=== PATIENT | male | born 1945 | race Asian ===

== ENCOUNTER 2024-02-13 08:43 | Inpatient (IN) | payer OTHER ==
[2024-02-13 10:08] LABS: HEMATOCRIT 39.5 % (35.4-49); HEMOGLOBIN 13.8 GM/dL (11.7-16.9); INR 1.09 (0.83-1.09); MCH 31.4 pg (25.7-33.7); MCHC 34.9 g/dl (32.0-35.9); MEAN CELL VOLUME 90.2 fl (80-96); MEAN PLT VOLUME 8.5 fl (7.5-11.1); PLATELET COUNT 203 10^3/uL (134-434); PROTHROMBIN TIME (PATIENT) 12.3 SEC (9.7-13.0); RBC 4.38 M/mm3 (4.00-5.60); RDW 13.7 % (11.9-15.9); WHITE BLOOD COUNT 12.2 K/mm3 (4.0-10.0)
[2024-02-13 10:11] LABS: ACTIVATED PTT 29.2 SECONDS (25.2-36.5)
[2024-02-13] MEDS ORDERED: ACETAMINOPHEN INJECTION 100 ML IVPB ONE (10:19)
[2024-02-13] MEDS ORDERED: FAMOTIDINE 20 MG/50 ML IVPB 20 MG/50 ML MG IVPB ONE (10:19)
[2024-02-13] MEDS: morphine CARPU-JECT 2 MG/1 ML DISP.SYRIN IVPUSH ONE (10:30)
[2024-02-13] MEDS: ACETAMINOPHEN 1000 MG/100 ML BAG IVPB ONE (10:35)
[2024-02-13] MEDS: FAMOTIDINE 20 MG/50 ML IVPB 20 MG/50 ML MG IVPB ONE (10:35)
[2024-02-13] MEDS: SODIUM CHLORIDE 0.9% 500 ML INFUS.BAG IV ONE ×3 (10:55→14:43)
[2024-02-13 10:58] LABS: ANISOCYTOSIS 0; MACROCYTOSIS 0
[2024-02-13 11:08] LABS: ALBUMIN 3.8 g/dl (3.4-5.0); BILIRUBIN,TOTAL 3.1 mg/dL (0.2-1); BLOOD UREA NITROGEN 20.8 mg/dL (7-18); CALCIUM 8.8 mg/dL (8.5-10.1); CREATININE 1.5 mg/dL (0.55-1.3); POTASSIUM 4.8 mmol/L (3.5-5.1); TOT PROT 7.3 g/dl (6.4-8.2)
[2024-02-13 11:33] LABS: BILIRUBIN,DIRECT 1.4 mg/dL (0.0-0.2)
[2024-02-13 14:15] LABS: EPI CELLS 3 /uL (0-25.1); HYALINE CASTS 0 /uL (0-3.1); URINE APPEARANCE CLEAR; URINE BACTERIA 10 /uL (0-1359); URINE BILIRUBIN NEGATIVE (NEGATIVE); URINE COLOR YELLOW; URINE GLUCOSE (UA) 1+ (NEGATIVE); URINE KETONE NEGATIVE (NEGATIVE); URINE LEUK ESTERASE NEGATIVE (NEGATIVE); URINE NITRITE NEGATIVE (NEGATIVE); URINE PROTEIN 1+ (NEGATIVE); URINE RBC 57 /uL (0-23.9); URINE WBC 13 /uL (0-25.8)
[2024-02-13] MEDS ORDERED: PIPERACILLIN/TAZOB 4.5 GM 4.5 GM/100 ML BAG IVPB ONE (14:36)
[2024-02-13] MEDS: PIPERACILLIN/TAZOB 4.5 GM 4.5 GM in DEXTROSE 5%-WATER 100 ML IVPB ONE (14:43)
[2024-02-13 16:05] VITALS: BMI 28.0
[2024-02-13] MEDS: LACTATED RINGERS SOLUTION 1,000 ML/1,000 ML INFUS.BAG IV SCH (16:21)
[2024-02-13] MEDS ORDERED: ALBUTEROL SO4 HFA INHALER IH PRN (16:54)
[2024-02-13] MEDS: PIPERACILLIN/TAZOB 3.375 GM 3.375 GM in DEXTROSE 5%-WATER - 50 ML IVPB SCH (17:07)
[2024-02-13] MEDS ORDERED: PIPERACILLIN/TAZOB 3.375 GM 3.375 GM in DEXTROSE 5%-WATER - 50 ML IVPB SCH (18:00)
[2024-02-13] MEDS: ATORVASTATIN CA 20 MG TABLET (FP) PO SCH (21:20)
[2024-02-13] MEDS: GABAPENTIN 100 MG CAPSULE PO SCH (21:20)
[2024-02-13] MEDS: MONTELUKAST NA 10 MG TABLET PO SCH (21:20)
[2024-02-13] MEDS: PIPERACILLIN/TAZOB 2.25 GM 2.25 GM in DEXTROSE 5%-WATER - 50 ML IVPB SCH (21:21)
[2024-02-14 08:47] LABS: COCAINE, UR NEGATIVE (NEGATIVE); METHADONE, UR NEGATIVE (NEGATIVE); OPIATES, URI POSITIVE (NEGATIVE); PHENCYCLIDINE,URINE NEGATIVE (NEGATIVE); URINE AMPHETAMINES NEGATIVE (NEGATIVE); URINE BARBITURATES NEGATIVE (NEGATIVE); URINE BENZODIAZEPINES NEGATIVE (NEGATIVE)
[2024-02-14 09:34] LABS: INR 1.34 (0.83-1.09)
[2024-02-14] MEDS: PANTOPRAZOLE 40 MG TABLET PO SCH (09:42)
[2024-02-14 09:49] LABS: BASO % 0.1 % (0-2.0); HEMATOCRIT 36.8 % (35.4-49); HEMOGLOBIN 12.7 GM/dL (11.7-16.9); LYMPH % 13.3 % (8-40); MCH 31.3 pg (25.7-33.7); MCHC 34.5 g/dl (32.0-35.9); MEAN CELL VOLUME 90.9 fl (80-96); MEAN PLT VOLUME 8.4 fl (7.5-11.1); MONO % 8.4 % (3.8-10.2); NEUT % 77.2 % (42.8-82.8); PLATELET COUNT 179 10^3/uL (134-434); RBC 4.05 M/mm3 (4.00-5.60); WHITE BLOOD COUNT 7.5 K/mm3 (4.0-10.0)
[2024-02-14] MEDS: BUDESONIDE/FORMOTEROL FUMARATE 80-4.5 MCG (10.3 GM INHALER) IH SCH (09:50)
[2024-02-14 09:57] LABS: CHLORIDE 105 mmol/L (98-107); POTASSIUM 4.1 mmol/L (3.5-5.1); SODIUM 137 mmol/L (136-145)
[2024-02-14 10:00] LABS: ANION GAP 6 mmol/L (4-13); BLOOD UREA NITROGEN 17.2 mg/dL (7-18); CALCIUM 8.4 mg/dL (8.5-10.1); CO2 26 mmol/L (21-32); GLUCOSE,RANDOM 111 mg/dL (74-106)
[2024-02-14 10:01] LABS: ALBUMIN 3.2 g/dl (3.4-5.0)
[2024-02-14 10:03] LABS: SGOT/AST 174 U/L (15-37); SGPT/ALT 383 U/L (13-61)
[2024-02-14 10:04] LABS: CREATININE 1.8 mg/dL (0.55-1.3)
[2024-02-14 10:05] LABS: BILIRUBIN,TOTAL 4.4 mg/dL (0.2-1); TOT PROT 6.4 g/dl (6.4-8.2)
[2024-02-14 10:06] LABS: ALK PHOS 138 U/L (45-117); LDH 194 U/L (87-246)
[2024-02-14 10:39] LABS: BILIRUBIN,DIRECT 2.2 mg/dL (0.0-0.2)
[2024-02-14] MEDS: PIPERACILLIN/TAZOB 2.25 GM 2.25 GM in DEXTROSE 5%-WATER - 50 ML IVPB SCH (15:12)
[2024-02-14 18:48] VITALS: RESP 18
[2024-02-15 09:14] LABS: HEMATOCRIT 38.8 % (35.4-49); HEMOGLOBIN 13.1 GM/dL (11.7-16.9); MCH 30.7 pg (25.7-33.7); MCHC 33.7 g/dl (32.0-35.9); MEAN PLT VOLUME 7.9 fl (7.5-11.1); PLATELET COUNT 179 10^3/uL (134-434); RBC 4.26 M/mm3 (4.00-5.60); RDW 14.3 % (11.9-15.9); WHITE BLOOD COUNT 4.8 K/mm3 (4.0-10.0)
[2024-02-15 09:18] LABS: INR 1.22 (0.83-1.09); PROTHROMBIN TIME (PATIENT) 13.7 SEC (9.7-13.0)
[2024-02-15 09:31] LABS: POTASSIUM 3.8 mmol/L (3.5-5.1)
[2024-02-15 09:36] LABS: CALCIUM 8.4 mg/dL (8.5-10.1)
[2024-02-15 09:37] LABS: ALBUMIN 3.1 g/dl (3.4-5.0); BLOOD UREA NITROGEN 13.8 mg/dL (7-18)
[2024-02-15 09:39] LABS: BILIRUBIN,DIRECT 0.7 mg/dL (0.0-0.2)
[2024-02-15 09:40] LABS: CREATININE 1.8 mg/dL (0.55-1.3)
[2024-02-15 09:41] LABS: TOT PROT 6.4 g/dl (6.4-8.2)
[2024-02-15 09:44] LABS: BILIRUBIN,TOTAL 1.6 mg/dL (0.2-1)
[2024-02-15] MEDS: POLYETHYLENE GLYCOL (HEALTHYLAX) 3350 17 GM PACKET PO SCH (15:59)
[2024-02-15] MEDS: MAG HYDROX/AL HYDROX/SIMETH 30 ML UNIT-DOSE CUP PO ONE (15:59)
[2024-02-15] MEDS: amLODIPine BESYLATE 2.5 MG TABLET (FP) PO ONE (17:23)
[2024-02-15] MEDS: LACTATED RINGERS SOLUTION 1,000 ML IV SCH (18:54)
[2024-02-16 09:33] LABS: HEMATOCRIT 42.8 % (35.4-49); HEMOGLOBIN 14.3 GM/dL (11.7-16.9); MCH 30.9 pg (25.7-33.7); MCHC 33.4 g/dl (32.0-35.9); MEAN CELL VOLUME 92.7 fl (80-96); MEAN PLT VOLUME 8.4 fl (7.5-11.1); PLATELET COUNT 215 10^3/uL (134-434); RBC 4.61 M/mm3 (4.00-5.60); RDW 14.2 % (11.9-15.9); WHITE BLOOD COUNT 6.7 K/mm3 (4.0-10.0)
[2024-02-16 09:35] LABS: BASO % 0.4 % (0-2.0); EOS % 2.8 % (0-4.5); HEMATOCRIT 42.8 % (35.4-49); HEMOGLOBIN 14.4 GM/dL (11.7-16.9); LYMPH % 28.8 % (8-40); MCHC 33.6 g/dl (32.0-35.9); MEAN CELL VOLUME 92.2 fl (80-96); MEAN PLT VOLUME 8.5 fl (7.5-11.1); MONO % 10.7 % (3.8-10.2); NEUT % 57.3 % (42.8-82.8); PLATELET COUNT 215 10^3/uL (134-434); RBC 4.64 M/mm3 (4.00-5.60); RDW 14.1 % (11.9-15.9); WHITE BLOOD COUNT 6.6 K/mm3 (4.0-10.0)
[2024-02-16 09:39] LABS: INR 1.05 (0.83-1.09); PROTHROMBIN TIME (PATIENT) 11.8 SEC (9.7-13.0)
[2024-02-16 09:58] LABS: POTASSIUM 4.2 mmol/L (3.5-5.1)
[2024-02-16 10:03] LABS: ALBUMIN 3.6 g/dl (3.4-5.0); BLOOD UREA NITROGEN 15.3 mg/dL (7-18)
[2024-02-16 10:06] LABS: BILIRUBIN,DIRECT 0.4 mg/dL (0.0-0.2); CREATININE 1.7 mg/dL (0.55-1.3)
[2024-02-16 10:07] LABS: TOT PROT 7.6 g/dl (6.4-8.2)
[2024-02-16] MEDS: TAMSULOSIN HCL 0.4 MG CAP PO SCH (10:54)
[2024-02-16] MEDS: SODIUM CHLORIDE 1,000 ML IV SCH (10:54)
[2024-02-16] MEDS: DOCUSATE SODIUM 100 MG CAPSULE (FP) PO PRN (16:38)
[2024-02-16] MEDS ORDERED: SIMETHICONE 80 MG TAB.CHEW (FP) PO PRN (21:58)
[2024-02-16] MEDS ORDERED: traMADol HCL 50 MG TABLET PO PRN (22:00)
[2024-02-16] MEDS ORDERED: oxyCODONE HCL 5 MG TABLET PO PRN (22:01)
[2024-02-17 09:01] VITALS: BP 123/77; PULSE 70; TEMP 97.5
[2024-02-17 09:29] LABS: HEMATOCRIT 40.7 % (35.4-49); HEMOGLOBIN 13.9 GM/dL (11.7-16.9); MCH 31.1 pg (25.7-33.7); MCHC 34.1 g/dl (32.0-35.9); MEAN CELL VOLUME 91.3 fl (80-96); MEAN PLT VOLUME 8.4 fl (7.5-11.1); PLATELET COUNT 229 10^3/uL (134-434); RBC 4.46 M/mm3 (4.00-5.60); RDW 14.1 % (11.9-15.9); WHITE BLOOD COUNT 5.1 K/mm3 (4.0-10.0)
[2024-02-17 09:41] LABS: INR 1.02 (0.83-1.09); PROTHROMBIN TIME (PATIENT) 11.5 SEC (9.7-13.0)
[2024-02-17] MEDS: POLYETHYLENE GLYCOL (HEALTHYLAX) 3350 17 GM PACKET PO SCH (09:54)
[2024-02-17] MEDS: TAMSULOSIN HCL 0.4 MG CAP PO SCH (09:54)
[2024-02-17 10:01] LABS: ALBUMIN 3.2 g/dl (3.4-5.0); BILIRUBIN,TOTAL 0.7 mg/dL (0.2-1); BLOOD UREA NITROGEN 16.4 mg/dL (7-18); TOT PROT 6.8 g/dl (6.4-8.2)
[2024-02-17 10:03] LABS: CALCIUM 8.4 mg/dL (8.5-10.1)
[2024-02-17 10:04] LABS: BILIRUBIN,DIRECT 0.3 mg/dL (0.0-0.2)
[2024-02-17 10:05] LABS: CREATININE 1.7 mg/dL (0.55-1.3)
== END 2024-02-17 13:50 | disposition home or self-care (01) | DRG 442 ==
LOC: JER 08:43 → JERBED 14:18 → J5S 15:11
PROVIDERS: ADMIT Internal Medicine; ATTEND Internal Medicine
DX: K76.9 Liver disease, unspecified (principal); I82.531 Chronic embolism and thrombosis of right popliteal vein; N13.2 Hydronephrosis with renal and ureteral calculous obstruction; N13.4 Hydroureter; N17.9 Acute kidney failure, unspecified; N99.0 Postprocedural (acute) (chronic) kidney failure; E78.5 Hyperlipidemia, unspecified; R94.5 Abnormal results of liver function studies; I73.9 Peripheral vascular disease, unspecified; J45.909 Unspecified asthma, uncomplicated; R50.9 Fever, unspecified; I25.10 Atherosclerotic heart disease of native coronary artery without angina pectoris; R10.13 Epigastric pain; N14.11 Contrast-induced nephropathy; T50.8X5A Adverse effect of diagnostic agents, initial encounter
CPT/HCPCS: 0241U-QW; 36415; 71045-TC-FY; 71275-TC; 74174-TC; 74181-TC; 76705-TC; 76775-TC; 80048; 80053; 80076; 80307; 81003; 82150; 82248; 82550; 82553; 82977; 83605; 83615; 83690; 84439; 84443; 84484; 85025; 85027; 85610; 85730; 86140; 86704; 86803; 86850; 86900; 86901; 87040; 87086; 87340; 87517; 93005; 93010; 99285-25; J0131; Q9967